=== PATIENT | female | born 1930 | race Caucasian/White ===

== ENCOUNTER → 2017-01-15 | Outpatient (CLI) | payer MEDICARE, BC ==
--- NOTE | 2017-01-15 14:00 | RADRPT ---
PROCEDURE: XR bilateral hips. CLINICAL INDICATION: Hip pain TECHNIQUE: AP pelvis/AP and lateral views of the right and left hips available for review. 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 There is no change in the right hip lateral plate overlying the right greater trochanter with cerclage wire fixation. The cerclage wires are br oken. There is no change in the left total hip replacement with a complex acetabular component. There is diffuse osteopenia There is no evidence of loosening of the prosthesis. No fractures, dis location or osseous lesions are identified. There is lower lumbar posterior fixation with pedicle s crews and connecting rods. There are normal soft tissues. There is arterial vascular calcification. 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 Diffuse osteopenia. No fracture identified RPTAT: [facility] .Stuart Herrera MD, Date Time Electronically viewed and signed by .Stuart Herrera MD, on 01/15/2017 14:00 .B/
== END | disposition home or self-care (01) ==
LOC: HKI 08:53
PROVIDERS: ATTEND Orthopaedic Surgery
DX: Z47.1 Aftercare following joint replacement surgery (principal); M21.70 Unequal limb length (acquired), unspecified site; Z96.643 Presence of artificial hip joint, bilateral
CPT/HCPCS: 73523